=== PATIENT | female | born 1995 | race Caucasian/White ===

== ENCOUNTER → 2020-01-05 09:07 | Outpatient (CLI) | payer OTHER, SELFPAY ==
--- NOTE | 2020-01-05 09:19 | US_ITS ---
STUDY: RENAL ULTRASOUND - COMPLETE REASON FOR EXAM: Female, 24 years old. UTI TECHNIQUE: Ultrasound evaluation of the kidneys was performed with real-time and static maldonado-scale imaging. COMPARISON: None. FINDINGS: RIGHT KIDNEY: Normal location of the right kidney, which is normal in size. The right kidney measures 10.1 cm x 5.4 cm x 3.9 cm. There is a normal cortex of the right kidney. The renal cortex measures 1.5 cm. There is a 1.5 cm x 2 cm x 0.9 cm cyst in the upper pole of the kidney. There are no right renal calculi. There is no right hydronephrosis. DISTAL RIGHT URETER: There is non-visualization of the distal right ureter. There is no demonstrated right ureterovesical junction calculus. There is a visualized right ureteral jet. LEFT KIDNEY: Normal location of the left kidney, which is normal in size. The left kidney measures 10.6 cm x 5.2 cm x 4.3 cm. There is a normal cortex of the left kidney. The renal cortex measures 1.6 cm. There is no left renal mass or cyst. There are no left renal calculi. There is no left hydronephrosis. DISTAL LEFT URETER: There is non-visualization of the distal left ureter. There is no demonstrated left ureterovesical junction calculus. There is a visualized left ureteral jet. BLADDER: The distended urinary bladder has a volume of 588 ml. The empty urinary bladder has a volume of 5.1 ml. There is a normal wall thickness of the distended urinary bladder. There is no demonstrated mass within the urinary bladder. There are no demonstrated bladder calculi. US/Kidney and Bladder IMPRESSION: 1.5 cm x 2 cm x 0.9 cm cyst in the upper pole of the right kidney. Electronically Signed: Neal Flood, at 15:49 EDT , Service support ,
== END ==
PROVIDERS: PCP Family Medicine; Referring Provider Urology; Visit Provider Urology
DX: N39.0 Urinary tract infection, site not specified (principal)
CPT/HCPCS: 76770